=== PATIENT | male | born 1990 | race Hispanic/Latino ===

== ENCOUNTER 2018-07-02 08:09 | Emergency (ER) | payer MEDICAID, OTHER ==
[2018-07-02 10:08] LABS: RAPID GROUP A STREP NEGATIVE (NEGATIVE)
[2018-07-02] MEDS ORDERED: ACETAMINOPHEN EXTRA STRENGTH 500 MG TABLET ONE (10:25)
== END 2018-07-02 10:27 | disposition home or self-care (01) ==
LOC: EDH 08:09
DX: B34.9 Viral infection, unspecified (principal)
CPT/HCPCS: 87804; 87880